=== PATIENT | male | born 1970 | race Caucasian/White ===

== ENCOUNTER 2018-02-13 00:03 | Emergency (ER) | payer OTHER ==
[~2018-02-13] VITALS: Ht 185.4 cm; Wt 133.8 kg
[~2018-02-13 00:03] MED LIST: ALLOPURINOL 10100 M1 PO; HYDROCODONE-AP1 EAC6 PO; IBUPROFEN 800800 M1 PO; MEDROLDOSEPACK PO; NUVIGIL150 MG; SERTRALINE HCL50 MG; VYVANSE60 MG PO
[2018-02-13 00:09] VITALS: BP 148/94
[2018-02-13] MEDS ORDERED: ADDERALL 10 MG10 MG PO (00:11)
[2018-02-13] MEDS ORDERED: NORCO 5-325 TA1 EAC1 PO (00:29)
[2018-02-13] MEDS ORDERED: MEDROLDOSEPACK PO (00:29)
== END 2018-02-13 00:39 | disposition home or self-care (01) ==
LOC: M.ERS 00:03
DX: M10.031 Idiopathic gout, right wrist (principal)

== ENCOUNTER 2018-07-14 23:00 | Emergency (ER) | payer OTHER ==
[~2018-07-14] VITALS: Ht 185.4 cm; Wt 123.4 kg
[~2018-07-14 23:00] MED LIST changes: +ADDERALL 10 MG10 MG PO; +NORCO 5-325 TA1 EAC1 PO
[2018-07-14] MEDS ORDERED: ZOLOFT25 MG (23:11)
[2018-07-14] MEDS ORDERED: PREDNISONE 10 M10 MG PO (23:20)
[2018-07-14] MEDS ORDERED: NORCO 5-325 TA1 EACH PO (23:20)
[2018-07-14 23:32] VITALS: BP 151/95
== END 2018-07-14 23:32 | disposition home or self-care (01) ==
LOC: M.ERS 23:00
DX: M10.031 Idiopathic gout, right wrist (principal)

== ENCOUNTER 2018-11-29 10:03 | Emergency (ER) | payer OTHER ==
[~2018-11-29] VITALS: Ht 182.9 cm; Wt 128.8 kg
[~2018-11-29 10:03] MED LIST changes: +NORCO 5-325 TA1 EACH PO; +PREDNISONE 10 M10 MG PO; +ZOLOFT25 MG
[2018-11-29 10:45] LABS: HEMATOCRIT 44.8 % (42.0-52.0); HEMOGLOBIN 15.9 gm/dL (14.0-18.0); MCH 31.8 pg (26.0-34.0); MCHC 35.6 g/dL (28.0-37.0); MCV 89.5 fL (80.0-100.0); MPV 7.1 fl. (7.2-11.1); RBC 5.01 mil/uL (4.50-6.00); RDW-CV 13.3 % (10.5-14.5); WBC 13.7 thou/uL (4.0-11.0)
[2018-11-29 11:05] LABS: ALBUMIN 3.3 g/dL (3.4-5.0); CALCIUM 9.7 mg/dL (8.5-10.1); CREATININE 0.9 mg/dL (0.6-1.3); POTASSIUM 3.8 mmol/L (3.5-5.1); TOTAL BILIRUBIN 1.3 mg/dL (<0.1-1.0); TOTAL PROTEIN 8.1 g/dL (6.4-8.2); URIC ACID* 8.5 mg/dL (2.6-7.2)
[2018-11-29] MEDS ORDERED: IBUPROFEN 800800 MG PO (11:15)
[2018-11-29] MEDS ORDERED: PREDNISONE 20 M20 M1 PO (11:15)
[2018-11-29] MEDS ORDERED: NORCO 5-325 TA1 EACH PO (11:15)
[2018-11-29 14:25] VITALS: BP 139/89
== END 2018-11-29 14:26 | disposition home or self-care (01) ==
LOC: M.ERS 10:03
PROVIDERS: Nurse Practitioner Family
DX: M10.062 Idiopathic gout, left knee (principal); M10.061 Idiopathic gout, right knee; M10.072 Idiopathic gout, left ankle and foot; M10.071 Idiopathic gout, right ankle and foot; F90.9 Attention-deficit hyperactivity disorder, unspecified type

== ENCOUNTER 2020-01-30 22:28 | Emergency (ER) | payer OTHER ==
[~2020-01-30] VITALS: Ht 185.4 cm; Wt 136.1 kg
[~2020-01-30 22:28] MED LIST changes: +IBUPROFEN 800800 MG PO; +PREDNISONE 20 M20 M1 PO
[2020-01-30 22:35] VITALS: BP 180/111
[2020-01-30] MEDS ORDERED: NORCO 5-325 TA1 EAC1 PO (22:55)
[2020-01-30] MEDS ORDERED: PREDNISONE 20 M20 M1 PO (22:55)
== END 2020-01-30 23:04 | disposition home or self-care (01) ==
LOC: M.ERS 22:28
DX: M77.9 Enthesopathy, unspecified (principal); M10.9 Gout, unspecified; F90.9 Attention-deficit hyperactivity disorder, unspecified type